=== PATIENT | female | born 1945 | race Caucasian/White ===

== ENCOUNTER 2018-09-25 00:56 | Outpatient (CLI) | payer MEDICARE, BC, SELFPAY ==
--- NOTE | 2018-09-25 08:18 | DI.MAMMO_ITS ---
SYMPTOMS/DIAGNOSIS: SCREENING, Z12.31 MAMMOGRAMS: Mammograms were interpreted according to the usual protocol including computer analysis with CAD system, tomosynthesis and C view imaging. Comparison is with the prior examinations. No suspicious masses or microcalcifications are seen. There is no definite evidence of malignancy. IMPRESSION: Negative mammogram. Routine screening is recommended. Category 1, breast density B. MQSA ASSESSMENT OF FINDINGS: Negative. Category 1. Patient will receive a letter notifying them of these results. BI-RADS category B. There are scattered areas of fibroglandular density.
[2018-09-25 09:15] LABS: Anion Gap 10.9 mmol/L (3-11); BUN 14 mg/dL (7-18); CO2 27.1 mmol/L (21.0-32.0); CREATININE 0.82 mg/dL (0.55-1.02); Calcium 8.8 mg/dL (8.5-10.1); Chloride 102 mmol/L (98-107); Glucose 104 mg/dL (70-100); Potassium 3.8 mmol/L (3.5-5.1); Sodium 140 mmol/L (136-145)
== END 2018-09-25 01:16 ==
PROVIDERS: PCP Family Medicine; Visit Provider Family Medicine
DX: R73.01 Impaired fasting glucose (principal); Z12.31 Encounter for screening mammogram for malignant neoplasm of breast
CPT/HCPCS: 36415; 77063; 77067; 80048

== ENCOUNTER 2019-12-27 13:42 | Outpatient (REF) | payer MEDICARE, BC, SELFPAY ==
[2019-12-27 19:32] LABS: Anion Gap 9.5 mmol/L (3-11); BUN 13 mg/dL (7-18); CO2 27.5 mmol/L (21.0-32.0); Chloride 103 mmol/L (98-107); Glucose 111 mg/dL (74-106); Potassium 3.5 mmol/L (3.5-5.1); Sodium 140 mmol/L (136-145)
== END 2019-12-27 14:02 ==
LOC: LBN 13:42
PROVIDERS: PCP Family Medicine; Visit Provider Family Medicine
DX: I10 Essential (primary) hypertension (principal)
CPT/HCPCS: 80048

== ENCOUNTER 2022-02-22 01:09 | Outpatient (CLI) | payer MEDICARE, BC, SELFPAY ==
[2022-02-22 08:26] LABS: Anion Gap 9.8 mmol/L (3-11); BUN 11 mg/dL (7-18); CO2 31.2 mmol/L (21.0-32.0); CREATININE 0.8 mg/dL (0.55-1.02); Calcium 9.1 mg/dL (8.5-10.1); Chloride 101 mmol/L (98-107); Glucose 122 mg/dL (74-106); Potassium 3.2 mmol/L (3.5-5.1); Sodium 142 mmol/L (136-145)
[2022-02-23 09:22] LABS: HIV-1/2 Ag & Ab Screen Negative (Negative)
[2022-02-25 10:50] LABS: Hepatitis C Ab w Rflx HCV PCR Negative (Negative)
== END 2022-02-22 01:10 | disposition home or self-care (01) ==
LOC: LBO 01:09
PROVIDERS: PCP Family Medicine; Visit Provider Family Medicine
DX: I10 Essential (primary) hypertension (principal); R73.09 Other abnormal glucose; Z11.3 Encounter for screening for infections with a predominantly sexual mode of transmission; Z11.4 Encounter for screening for human immunodeficiency virus [HIV]; Z11.59 Encounter for screening for other viral diseases
CPT/HCPCS: 36415; 80048; 86803; 87389

== ENCOUNTER 2022-06-11 02:44 | Outpatient (CLI) | payer MEDICARE, BC, SELFPAY ==
[2022-06-11 08:31] LABS: BUN 15 mg/dL (7-18); CREATININE 0.8 mg/dL (0.55-1.02); Calcium 9.2 mg/dL (8.5-10.1); Chloride 100 mmol/L (98-107); Estimated GFR 76.31 (mL/min/1.73m2); Glucose 137 mg/dL (74-106); Magnesium 1.9 mg/dL (1.8-2.4); Potassium 3.1 mmol/L (3.5-5.1); Sodium 139 mmol/L (136-145)
[2022-06-11 09:19] LABS: Lab Add On Test DONE
[2022-06-11 10:51] LABS: Hemoglobin A1C 5.4 % (<5.7)
== END 2022-06-11 02:45 | disposition home or self-care (01) ==
PROVIDERS: PCP Family Medicine; Visit Provider Student in an Organized Health Care Education/Training Program
DX: E87.6 Hypokalemia (principal); R73.01 Impaired fasting glucose
CPT/HCPCS: 36415; 80048; 83036; 83735

== ENCOUNTER 2022-07-16 03:21 | Outpatient (CLI) | payer MEDICARE, BC, SELFPAY ==
[2022-07-16 08:05] LABS: Anion Gap 5.6 mmol/L (3-11); BUN 13 mg/dL (7-18); CO2 31.4 mmol/L (21.0-32.0); CREATININE 0.8 mg/dL (0.55-1.02); Calcium 9.4 mg/dL (8.5-10.1); Chloride 102 mmol/L (98-107); Estimated GFR 76.31 (mL/min/1.73m2); Glucose 119 mg/dL (74-106); Magnesium 1.9 mg/dL (1.8-2.4); Potassium 3.3 mmol/L (3.5-5.1); Sodium 139 mmol/L (136-145)
== END 2022-07-16 03:22 | disposition home or self-care (01) ==
LOC: LBO 03:22
PROVIDERS: PCP Family Medicine; Visit Provider Student in an Organized Health Care Education/Training Program
DX: E87.6 Hypokalemia (principal)
CPT/HCPCS: 36415; 80048; 83735